=== PATIENT | female | born 1990 | race Caucasian/White ===

== ENCOUNTER 2019-10-21 12:40 | Emergency (ER) | payer MEDICAID ==
[2019-10-21] MEDS ORDERED: Ketorolac 60 MG/2 ML SDV IM ONE (13:26)
[2019-10-21] MEDS ORDERED: HYDROmorphone 1 MG/ML Syringe IM ONE (13:26)
[2019-10-21] MEDS ORDERED: Cyclobenzaprine 10 MG Tab PO ONE (13:27)
--- NOTE | 2019-10-21 13:34 | EDM.PDOC ---
ED HPI GENERAL MEDICAL PROBLEM - General Chief Complaint: Flank Pain Stated Complaint: BACK PAIN UNABLE TO WALK Time Seen by Provider: 10/21/19 13:08 Source of Information: Reports: Patient History Limitations: Reports: No Limitations - History of Present Illness INITIAL COMMENTS - FREE TEXT/NARRATIVE: The patient presents with left lower back pain. She said this pain started this morning. She was twisting and felt the pain. The pain is in her left lower back. She has no numbness, weakness, bowel or bladder problems. She had trouble with her back before. She has no history of kidney stones. Onset: Sudden Duration: Hour(s): Location: Reports: Back (left lower) Quality: Reports: Sharp Severity: Severe Improves with: Reports: Immobilization Worsens with: Reports: Movement Context: Denies: Trauma Associated Symptoms: Reports: No Other Symptoms Left Flank Pain Score (Numeric/FACES): 10 - Related Data Allergies Allergy/AdvReac Type Severity Reaction Status Date / Time No Known Allergies Allergy Verified 10/21/19 13:05 Home Meds: Home Meds Albuterol [IJP: Ventolin HFA] 2 puff INH Q4HR PRN 12/02/15 [History] Bifidobacter. Bifidum/B.Longum [Florajen Bifidoblend] 1 tab PO DAILY 12/02/15 [History] Cyclobenzaprine [Flexeril] 10 mg PO TID PRN 12/02/15 [History] Fexofenadine/Pseudoephedrine [Zaria-D 12 Hour] 1 tab PO DAILY 12/02/15 [History] Fluticasone Propionate [Flonase Allergy Relief] 1 spray NASBOTH DAILY PRN 12/02/15 [History] Levothyroxine Sodium [Synthroid] 1 tab PO DAILY 12/02/15 [History] Notrel 1 tab PO DAILY 12/02/15 [History] Ondansetron [IJD: Ondansetron ODT] 1 tab PO Q6HR PRN 12/02/15 [History] Pantoprazole Sodium [Protonix] 40 mg PO DAILY #30 tablet.dr 12/02/15 [Rx] Sucralfate 1 gm PO QID 12/02/15 [History] Temazepam [Restoril] 1 cap PO BEDTIME 12/02/15 [History] Topiramate 1 tab PO DAILY 12/02/15 [History] buPROPion HCL [Wellbutrin Xl] 1 tab PO DAILY 12/02/15 [History] Cyclobenzaprine [Flexeril] 10 mg PO TID PRN #20 tab 10/21/19 [Rx] Hydrocodone/Acetaminophen [Hydrocodone-Acetamin 5-325 mg] 1 - 2 each PO Q6HR PRN #10 tablet 10/21/19 [Rx] Past Medical History Psychiatric History: Reports: Anxiety Endocrine/Metabolic History: Reports: Hypothyroidism Social & Family History - Tobacco Use Smoking Status *Q: Current Every Day Smoker Years of Tobacco use: 10 Packs/Tins Daily: 0.1 - Caffeine Use Caffeine Use: Reports: None - Recreational Drug Use Recreational Drug Use: No ED ROS GENERAL - Review of Systems Review Of Systems: See Below Constitutional: Reports: No Symptoms HEENT: Reports: No Symptoms Respiratory: Reports: No Symptoms Cardiovascular: Reports: No Symptoms Endocrine: Reports: No Symptoms GI/Abdominal: Reports: No Symptoms : Reports: No Symptoms Musculoskeletal: Reports: Back Pain (left lower) ED EXAM,LOWER BACK PAIN/INJURY - Physical Exam Exam: See Below Exam Limited By: No Limitations General Appearance: Alert, No Apparent Distress Ears: Normal External Exam Nose: Normal Inspection Head: Atraumatic, Normocephalic Neck: Normal Inspection Respiratory/Chest: No Respiratory Distress, Lungs Clear, Normal Breath Sounds Cardiovascular: Regular Rate, Rhythm, No Edema, No Murmur GI/Abdominal: Soft, Non-Tender, No Organomegaly, No Mass Back Exam: Other (Pain upon palpation to the left lower back) Extremities: Normal Inspection Neurological: Alert, No Motor/Sensory Deficits, Oriented x 3 Course - Vital Signs Last Recorded V/S: Last Vital Signs Temp 97 F 10/21/19 13:06 Pulse 129 H 10/21/19 13:06 Resp 16 10/21/19 13:06 BP 110/58 L 10/21/19 13:06 Pulse Ox 96 10/21/19 13:06 - Orders/Labs/Meds Meds: Medications Discontinued Medications Generic Name Dose Route Start Last Admin Trade Name Freq PRN Reason Stop Dose Admin Cyclobenzaprine HCl 10 mg 10/21/19 13:27 10/21/19 13:42 Flexeril PO 10/21/19 13:28 10 mg ONETIME ONE Administration Hydromorphone HCl 1 mg 10/21/19 13:26 10/21/19 13:42 Dilaudid IM 10/21/19 13:27 1 mg ONETIME ONE Administration Ketorolac Tromethamine 60 mg 10/21/19 13:26 10/21/19 13:42 Toradol IM 10/21/19 13:27 60 mg ONETIME ONE Administration - Re-Assessments/Exams Free Text/Narrative Re-Assessment/Exam: 10/21/19 13:36 I ordered dilaudid 1mg IM, toradol 60mg IM and flexeril 10mg PO. 10/21/19 14:17 She feels better. I will discharge her home with some flexeril and a few hydrocodone. Departure - Departure Time of Disposition: 14:20 Disposition: Home, Self-Care 01 Condition: Good Clinical Impression: Left low back pain Qualifiers: Chronicity: acute Sciatica presence: without sciatica Qualified Code(s): M54.5 - Low back pain - Discharge Information *PRESCRIPTION DRUG MONITORING PROGRAM REVIEWED*: Not Applicable *COPY OF PRESCRIPTION DRUG MONITORING REPORT IN PATIENT NIKOLAI: Not Applicable Prescriptions: Cyclobenzaprine [Flexeril] 10 mg PO TID PRN #20 tab PRN Reason: Pain Hydrocodone/Acetaminophen [Hydrocodone-Acetamin 5-325 mg] 1 - 2 each PO Q6HR PRN #10 tablet PRN Reason: Pain Referrals: Tatum Santiago MD [Primary Care Provider] - 1 Week Forms: ED Department Discharge Additional Instructions: Take motrin or aleve for pain. You may also use the flexeril for pain. If that does not help, try the hydrocodone. Follow up with your doctor within a couple of weeks. Please return if you are worse. Sepsis Event Note (ED) - Evaluation Sepsis Screening Result: No Definite Risk - Focused Exam Vital Signs: Vital Signs Temp Pulse Resp BP Pulse Ox 10/21/19 13:06 97 F 129 H 16 110/58 L 96
[2019-10-21 14:40] VITALS: BP 115/75; PULSE 120
== END 2019-10-21 14:33 | disposition home or self-care (01) ==
LOC: JD.ED 12:40
DX: M54.5 Low back pain (principal); F41.9 Anxiety disorder, unspecified; E03.9 Hypothyroidism, unspecified; F17.210 Nicotine dependence, cigarettes, uncomplicated; Z79.899 Other long term (current) drug therapy
CPT/HCPCS: 96372; 99283; A9270; J1170; J1885

== ENCOUNTER 2020-11-16 08:23 | Emergency (ER) | payer MEDICAID ==
[2020-11-16 09:14] VITALS: BP 161/102; PULSE 112
--- NOTE | 2020-11-16 09:32 | EDM.PDOC ---
ED HPI GENERAL MEDICAL PROBLEM - General Chief Complaint: Eye Problems Stated Complaint: LT EYE PAIN Time Seen by Provider: 11/16/20 09:18 Source of Information: Reports: Patient, RN Notes Reviewed - History of Present Illness INITIAL COMMENTS - FREE TEXT/NARRATIVE: Patient presents with eye problem. Her left eye noted yesterday when she woke up that she had to open it and pry it open to see she has no vision changes or vision loss. Patient does wear reading glasses has had a recent eye exam, no changes in her prescription she also follows with neurology for headaches. She is currently on an injectable medication and gets her next dose later this month. She also takes Topamax and Imitrex as needed although this is different than her normal headache. It is her left eye she notes it to be uncomfortable but now developing headache around the left voodoo and now generalized. She did not sleep too well today. She took her [id number] tension headache medication that is [id number] no fevers chills or sweats no sinus problems no earaches no suspicious swallowing difficulty or sore throat no smell or taste problems no coughing cold symptoms shortness of breath or breathing problems no nausea vomiting or diarrhea normal menstrual cycles no burning pain or blood in the urine no dizziness fainting spell lightheadedness no focal neurologic deficits. Left Eye Pain Score (Numeric/FACES): 8 - Related Data Allergies Allergy/AdvReac Type Severity Reaction Status Date / Time No Known Allergies Allergy Verified 11/16/20 09:11 Home Meds: Home Meds Albuterol [IJP: Ventolin HFA] 2 puff INH Q4HR PRN 12/02/15 [History] Bifidobacter. Bifidum/B.Longum [Florajen Bifidoblend] 1 tab PO DAILY 12/02/15 [History] Cyclobenzaprine [Flexeril] 10 mg PO TID PRN 12/02/15 [History] Fexofenadine/Pseudoephedrine [Zaria-D 12 Hour] 1 tab PO DAILY 12/02/15 [History] Fluticasone Propionate [Flonase Allergy Relief] 1 spray NASBOTH DAILY PRN 12/02/15 [History] Levothyroxine Sodium [Synthroid] 1 tab PO DAILY 12/02/15 [History] Notrel 1 tab PO DAILY 12/02/15 [History] Ondansetron [IJD: Ondansetron ODT] 1 tab PO Q6HR PRN 12/02/15 [History] Pantoprazole Sodium [Protonix] 40 mg PO DAILY #30 tablet.dr 12/02/15 [Rx] Sucralfate 1 gm PO QID 12/02/15 [History] Temazepam [Restoril] 1 cap PO BEDTIME 12/02/15 [History] Topiramate 1 tab PO DAILY 12/02/15 [History] buPROPion HCL [Wellbutrin Xl] 1 tab PO DAILY 12/02/15 [History] Cyclobenzaprine [Flexeril] 10 mg PO TID PRN #20 tab 10/21/19 [Rx] Hydrocodone/Acetaminophen [HYDROcodone-Acetaminophen 5-325 MG] 1 - 2 each PO Q6HR PRN #10 tablet 10/21/19 [Rx] Past Medical History Psychiatric History: Reports: Anxiety Endocrine/Metabolic History: Reports: Hypothyroidism, Obesity/BMI 30+ - Past Surgical History GI Surgical History: Reports: Cholecystectomy Social & Family History - Caffeine Use Caffeine Use: Reports: None ED ROS GENERAL - Review of Systems Review Of Systems: See Below Constitutional: Denies: Fever, Chills, Diaphoresis HEENT: Reports: Eye Pain, Glasses. Denies: Ear Pain, Nose Pain, Rhinitis, Sinus Problem, Throat Pain, Vision Change Respiratory: Denies: Shortness of Breath, Cough Cardiovascular: Denies: Chest Pain GI/Abdominal: Denies: Abdominal Pain, Nausea, Vomiting Musculoskeletal: Reports: No Symptoms. Denies: Neck Pain Skin: Reports: No Symptoms. Denies: Rash Neurological: Reports: Headache. Denies: Numbness, Paresthesia, Tingling, Trouble Speaking, Weakness, Gait Disturbance Psychiatric: Reports: No Symptoms Hematologic/Lymphatic: Reports: No Symptoms ED EXAM GENERAL W FULL EYE - Physical Exam Exam: See Below Exam Limited By: No Limitations General Appearance: Alert, WD/WN, No Apparent Distress Eye Exam: Left Eye: Abnormal Pupil (Diet is smaller than the right left measures about 3 to 4 mm right measures 4 to 5 mm both seem to be round reactive to light and accommodation extraocular muscles are intact no gross visual field deficit), Bilateral Eye: Other (Fluorescein stain the left eye is unremarkable for any uptake. She does have some scleral inflammation) Course - Vital Signs Text/Narrative:: Anisocoria with left eye problems, headache, recommend work-up and evaluation least with a CT head, sed rate CRP CMP CBC to rule out any autoimmune illness especially vasculitis or temporal arteritis. Last Recorded V/S: Last Vital Signs Temp 98.5 F 11/16/20 09:11 Pulse 112 H 11/16/20 09:11 Resp 16 11/16/20 09:11 BP 161/102 H 11/16/20 09:11 Pulse Ox 99 11/16/20 09:11 - Orders/Labs/Meds Orders: Active Orders 24 hr Category Date Time Status Peripheral IV Care [RC] . DIRECTED Care 11/16/20 09:58 Active Sodium Chloride 0.9% [Saline Flush] Med 11/16/20 09:58 Active 10 ml FLUSH ASDIRECTED PRN Peripheral IV Insertion Adult [OM.PC] Stat Oth 11/16/20 09:57 Ordered Medication Orders Sodium Chloride (Sodium Chloride 0.9% 10 Ml Syringe) 10 ml FLUSH ASDIRECTED PRN PRN Reason: Keep Vein Open Last Admin: 11/16/20 10:26 Dose: 10 ml Documented by: HERMMIC Labs: Laboratory Tests 11/16/20 11/16/20 Range/Units 10:22 10:22 WBC 7.48 (3.98-10.04) K/mm3 RBC 4.95 (3.98-5.22) M/mm3 Hgb 13.8 (11.2-15.7) gm/dl Hct 41.0 (34.1-44.9) % MCV 82.8 D (79.4-94.8) fl MCH 27.9 (25.6-32.2) pg MCHC 33.7 (32.2-35.5) g/dl RDW Std Deviation 40.9 (36.4-46.3) fL Plt Count 303 (182-369) K/mm3 MPV 9.7 (9.4-12.3) fl Neut % (Auto) 46.8 (34.0-71.1) % Lymph % (Auto) 39.8 (19.3-51.7) % [place] % (Auto) 9.0 (4.7-12.5) % Eos % (Auto) 3.3 (0.7-5.8) Baso % (Auto) 0.7 (0.1-1.2) % Neut # (Auto) 3.50 (1.56-6.13) K/mm3 Lymph # (Auto) 2.98 (1.18-3.74) K/mm3 [place] # (Auto) 0.67 H (0.24-0.36) K/mm3 Eos # (Auto) 0.25 (0.04-0.36) K/mm3 Baso # (Auto) 0.05 (0.01-0.08) K/mm3 Sodium 138 (136-145) mEq/L Potassium 3.4 L (3.5-5.1) mEq/L Chloride 99 (98-107) mEq/L Carbon Dioxide 24 (21-32) mEq/L Anion Gap 18.4 H (5-15) BUN 12 (7-18) mg/dL Creatinine 0.9 (0.55-1.02) mg/dL Est Cr Clr Drug Dosing 82.99 mL/min Estimated GFR (MDRD) > 60 (>60) mL/min BUN/Creatinine Ratio 13.3 L (14-18) Glucose 209 H (70-99) mg/dL Calcium 9.1 (8.5-10.1) mg/dL C-Reactive Protein 1.1 H* (<1.0) mg/dL Meds: Medications Generic Name Dose Route Start Last Admin Trade Name Freq PRN Reason Stop Dose Admin Sodium Chloride 10 ml 11/16/20 09:58 11/16/20 10:26 Sodium Chloride 0.9% 10 Ml Syringe FLUSH 10 ml ASDIRECTED PRN Administration Keep Vein Open Discontinued Medications Generic Name Dose Route Start Last Admin Trade Name Freq PRN Reason Stop Dose Admin Diphenhydramine HCl 25 mg 11/16/20 10:00 11/16/20 10:26 Diphenhydramine 50 Mg/Ml Sdv IVPUSH 11/16/20 10:01 25 mg ONETIME ONE Administration Sodium Chloride 1,000 mls @ 999 mls/hr 11/16/20 09:58 11/16/20 10:26 Normal Saline IV 11/16/20 10:58 999 mls/hr ONETIME ONE Administration Ketorolac Tromethamine 15 mg 11/16/20 10:00 11/16/20 10:26 Ketorolac 15 Mg/Ml Sdv IVPUSH 10/03/21 10:01 15 mg ONETIME ONE Administration Metoclopramide HCl 10 mg 11/16/20 10:05 11/16/20 10:26 Metoclopramide 10 Mg/2 Ml Sdv IVPUSH 11/16/20 10:06 10 mg ONETIME ONE Administration - Re-Assessments/Exams Free Text/Narrative Re-Assessment/Exam: 11/16/20 12:22 Dictation box white blood cell count 7400 hemoglobin 13.8 hematocrit 41 platelet count is 303,000 sodium 130 potassium 3.4 chloride 99 CO2 is 24 BUN 12 creatinine 0.9 GFR normal glucose is 209 C-reactive protein 1.1 Head is unremarked for any acute findings it actually was compared with an MRI that she had had back in July 2020 Departure - Departure Time of Disposition: 12:30 Disposition: Home, Self-Care 01 Condition: Good Clinical Impression: Anisocoria Headache Qualifiers: Headache type: unspecified Headache chronicity pattern: acute headache Intractability: not intractable Qualified Code(s): R51.9 - Headache, unspecified - Discharge Information Instructions: General Headache Without Cause Referrals: Tatum Santiago MD [Primary Care Provider] - Forms: ED Department Discharge Additional Instructions: Recommend off work the rest of today and tomorrow. Follow-up with your primary care physician and neurologist. Need to make sure that they recheck your pupillary measurements as it appears today that your right pupil is larger than the left. Return to emergency room with any increasing headache, fevers, vision changes, vision loss, weakness or worsening symptoms. Sepsis Event Note (ED) - Evaluation Sepsis Screening Result: No Definite Risk - Focused Exam Vital Signs: Vital Signs Temp Pulse Resp BP Pulse Ox 11/16/20 09:11 98.5 F 112 H 16 161/102 H 99 - My Orders Last 24 Hours: My Active Orders 11/16/20 09:57 Peripheral IV Insertion Adult [OM.PC] Stat 11/16/20 09:58 Peripheral IV Care [RC] . DIRECTED Sodium Chloride 0.9% [Saline Flush] 10 ml FLUSH ASDIRECTED PRN - Assessment/Plan Last 24 Hours: My Active Orders 11/16/20 09:57 Peripheral IV Insertion Adult [OM.PC] Stat 11/16/20 09:58 Peripheral IV Care [RC] . DIRECTED Sodium Chloride 0.9% [Saline Flush] 10 ml FLUSH ASDIRECTED PRN
[2020-11-16] MEDS ORDERED: Sodium Chloride 0.9% 10 ML Syringe FLUSH PRN (09:58)
[2020-11-16] MEDS ORDERED: Sodium Chloride 0.9% 1,000 ML IV ONE (09:58)
[2020-11-16] MEDS ORDERED: diphenhydrAMINE 50 MG/ML SDV IVPUSH ONE (10:00)
[2020-11-16] MEDS ORDERED: Ketorolac 15 MG/ML SDV IVPUSH ONE (10:00)
[2020-11-16] MEDS ORDERED: Metoclopramide 10 MG/2 ML SDV IVPUSH ONE (10:05)
--- NOTE | 2020-11-16 11:21 | CT ---
Head CT Technique: Multiple axial sections through the brain were obtained. Intravenous contrast was not utilized. Reconstructed coronal and sagittal images were obtained. Comparison: Prior MRI brain dated 07/24/20. Findings: Ventricles along with basal cisterns and sulci over the convexities are within normal limits for the patient's age. No abnormal parenchymal densities are seen. No evidence of intracranial hemorrhage is seen. No midline shift or mass-effect is seen. Bone window settings were reviewed. Visualized mastoid sinuses are clear. There is mucosal thickening seen within a large portion of the right maxillary sinus. Small retention cyst is noted within the left maxillary sinus. Other visualized paranasal sinuses are clear. No acute calvarial abnormality is seen. Impression: 1. Mucosal thickening within the paranasal sinuses as noted above which appear fairly stable from prior MRI. 2. No acute intracranial abnormality is seen on noncontrast head CT exam. Diagnostic code #2
== END 2020-11-16 12:41 | disposition home or self-care (01) ==
LOC: JD.ED 08:23
DX: R51.9 Headache, unspecified (principal); H57.02 Anisocoria; E03.9 Hypothyroidism, unspecified; E66.9 Obesity, unspecified; Z68.30 Body mass index [BMI] 30.0-30.9, adult; Z79.899 Other long term (current) drug therapy
CPT/HCPCS: 36415; 70450; 80048; 85025; 86140; 96374; 96375; 99284; J1200; J1885; J2765; J7030

== ENCOUNTER 2021-09-28 21:26 | Emergency (ER) | payer MEDICAID ==
[2021-09-28] MEDS ORDERED: Ondansetron 4 MG/2 ML SDV IVPUSH ONE (22:37)
[2021-09-28] MEDS ORDERED: Sodium Chloride 0.9% 1,000 ML IV ONE (22:37)
[2021-09-28] MEDS ORDERED: Sodium Chloride 0.9% 10 ML Syringe FLUSH PRN (22:37)
[2021-09-28 22:46] VITALS: BP 147/98; PULSE 121
[2021-09-29] MEDS ORDERED: Potassium Chloride 20 MEQ Tab.ER PO ONE (00:45)
== END 2021-09-29 01:06 | disposition home or self-care (01) ==
LOC: JD.ED 21:26
DX: B34.9 Viral infection, unspecified (principal); E87.6 Hypokalemia; E11.9 Type 2 diabetes mellitus without complications; E03.9 Hypothyroidism, unspecified; E66.9 Obesity, unspecified; Z68.42 Body mass index [BMI] 45.0-49.9, adult; Z87.891 Personal history of nicotine dependence; Z20.822 Contact with and (suspected) exposure to COVID-19
CPT/HCPCS: 36415; 80053; 84703; 85025; 87635; 96361; 96374; 99284; A9270; J2405; J3490; J7030; 99283; U0002

== ENCOUNTER 2022-09-15 13:55 | Emergency (ER) | payer MEDICAID ==
[2022-09-15 15:12] VITALS: BP 145/84; PULSE 101
== END 2022-09-15 15:12 | disposition home or self-care (01) ==
LOC: JD.ED 13:55
DX: M25.551 Pain in right hip (principal); E11.9 Type 2 diabetes mellitus without complications; E03.9 Hypothyroidism, unspecified; E66.9 Obesity, unspecified; Z68.41 Body mass index [BMI] 40.0-44.9, adult; Z79.899 Other long term (current) drug therapy
CPT/HCPCS: 73502-26-RT; 73502-RT; 99283

== ENCOUNTER 2023-07-07 18:16 | Emergency (ER) | payer MEDICAID ==
[2023-07-07] MEDS: predniSONE 20 MG Tab PO ONE (18:56)
[2023-07-07] MEDS: Acetaminophen/HYDROcodone 325-5 MG Tab PO ONE (18:56)
[2023-07-07] MEDS: Orphenadrine 100 MG Tab.ER PO ONE (18:56)
[2023-07-07 19:43] VITALS: BP 93/80; PULSE 135
== END 2023-07-07 19:43 | disposition home or self-care (01) ==
LOC: JD.ED 18:16
DX: M54.42 Lumbago with sciatica, left side (principal); M54.41 Lumbago with sciatica, right side; I10 Essential (primary) hypertension; E11.9 Type 2 diabetes mellitus without complications; E03.9 Hypothyroidism, unspecified; E78.00 Pure hypercholesterolemia, unspecified; Z79.899 Other long term (current) drug therapy; Z86.16 Personal history of COVID-19; Z90.49 Acquired absence of other specified parts of digestive tract; Z87.891 Personal history of nicotine dependence
CPT/HCPCS: 99283; A9270; J7512

== ENCOUNTER 2023-08-23 09:24 | Day surgery (SDC) | payer MEDICAID ==
[~2023-08-23 09:24] MED LIST: Sodium Chloride 0.9% 10 ML Syringe FLUSH PRN; Sodium Chloride 0.9% 10 ML Syringe FLUSH SCH
[2023-08-23] MEDS: Lactated Ringers 1,000 ML IV SCH (09:50)
[2023-08-23] MEDS ORDERED: Propofol 200 MG/20 ML SDV ONE ×2 (10:36→10:48)
[2023-08-23] MEDS ORDERED: Ondansetron 4 MG/2 ML SDV ONE (10:47)
[2023-08-23 11:21] VITALS: BP 129/73; PULSE 90
== END 2023-08-23 11:30 | disposition home or self-care (01) ==
LOC: JD.SDS 09:24
PROVIDERS: ATTEND Surgery
DX: K21.00 Gastro-esophageal reflux disease with esophagitis, without bleeding (principal); K29.50 Unspecified chronic gastritis without bleeding; E11.9 Type 2 diabetes mellitus without complications; E78.2 Mixed hyperlipidemia; E03.9 Hypothyroidism, unspecified; F41.9 Anxiety disorder, unspecified; F32.A Depression, unspecified; E66.01 Morbid (severe) obesity due to excess calories; Z79.84 Long term (current) use of oral hypoglycemic drugs; Z79.890 Hormone replacement therapy; Z79.899 Other long term (current) drug therapy
CPT/HCPCS: 43239; 82947; J2405; J2704; J7120

== ENCOUNTER 2024-10-27 17:41 | Emergency (ER) | payer MEDICAID ==
[2024-10-27 18:15] VITALS: PULSE 100
[2024-10-27] MEDS: Ketorolac 30 MG/ML SDV IM ONE (18:46)
[2024-10-27 19:48] VITALS: BP 139/93
== END 2024-10-27 18:57 | disposition home or self-care (01) ==
LOC: JD.ED 17:41
DX: M54.50 Low back pain, unspecified (principal); I10 Essential (primary) hypertension; E66.9 Obesity, unspecified; E11.9 Type 2 diabetes mellitus without complications; E03.9 Hypothyroidism, unspecified; Z79.890 Hormone replacement therapy; Z79.899 Other long term (current) drug therapy; Z86.16 Personal history of COVID-19; Z90.49 Acquired absence of other specified parts of digestive tract; Z87.891 Personal history of nicotine dependence; Z68.42 Body mass index [BMI] 45.0-49.9, adult
CPT/HCPCS: 96372; 99283; J1885; 99284